=== PATIENT | male | born 2000 | race American Indian/Alaskan Native ===

== ENCOUNTER 2020-11-08 08:00 | Outpatient (CLI) | payer OTHER | END 2020-11-08 08:30 | disposition home or self-care (01) | LOC: PPH VACUNA 08:00 | DX: Z23 Encounter for immunization (principal) ==

== ENCOUNTER 2020-11-29 08:00 | Outpatient (CLI) | payer OTHER | END 2020-11-29 08:30 | disposition home or self-care (01) | LOC: PPH VACUNA 08:00 | DX: Z23 Encounter for immunization (principal) ==

== ENCOUNTER 2021-06-19 08:00 | Outpatient (CLI) | payer OTHER | END 2021-06-19 08:30 | disposition home or self-care (01) | LOC: PPH VACUNA 08:00 | PROVIDERS: ATTEND Emergency Medicine Pediatric Emergency Medicine | DX: Z23 Encounter for immunization (principal) ==

== ENCOUNTER 2022-09-18 08:13 | Outpatient (CLI) | payer OTHER | END 2022-09-18 08:22 | disposition home or self-care (01) | LOC: TOM 08:13 | DX: J34.2 Deviated nasal septum (principal); J34.3 Hypertrophy of nasal turbinates ==